=== PATIENT | female | born 2000 | race African-American/Black ===

== ENCOUNTER 2022-08-29 09:41 | Emergency (ER) | payer MEDICAID, OTHER ==
[~2022-08-29] VITALS: Ht 170.2 cm; Wt 90.0 kg
[2022-08-29 09:45] VITALS: BP 116/62; RESP 20; TEMP 97.8; O2SAT 100
[2022-08-29 09:47] VITALS: PULSE 86
== END 2022-08-29 11:50 | disposition home or self-care (01) ==
LOC: ER 09:41
DX: M12.572 Traumatic arthropathy, left ankle and foot (principal); T14.90XS Injury, unspecified, sequela; X58.XXXS Exposure to other specified factors, sequela
CPT/HCPCS: 73630; 99283